=== PATIENT | female | born 1950 | race African-American/Black ===

== ENCOUNTER 2021-01-21 11:56 | Outpatient (CLI) | payer MEDICARE, OTHER | END 2021-01-21 11:57 | disposition home or self-care (01) | LOC: CSHMAMMO 11:56 | PROVIDERS: ATTEND Student in an Organized Health Care Education/Training Program | DX: Z12.31 Encounter for screening mammogram for malignant neoplasm of breast (principal); Z91.89 Other specified personal risk factors, not elsewhere classified; Z80.3 Family history of malignant neoplasm of breast | CPT/HCPCS: 77063; 77067 ==